=== PATIENT | male | born 1955 | race Caucasian/White ===

== ENCOUNTER 2017-01-07 00:08 | Emergency (ER) | payer BC ==
[2017-01-07] MEDS ORDERED: MORPHINE SULFATE 10 MG/ML SOL IV ONE (00:24)
[2017-01-07 00:27] VITALS: TEMP 100.4
[2017-01-07 00:27] LABS: BASOPHILS % (AUTO) 1 % (0-3); EOSINOPHILS % (AUTO) 4 % (0-9); HEMATOCRIT 36 % (39-53); MEAN CORPUSCULAR HGB CONC 35.9 gm/dl (32.0-36.0); MEAN CORPUSCULAR VOLUME 87 fL (80-100); MONOCYTES % (AUTO) 9.8 % (0-12); NEUTROPHILS % (AUTO) 64.5 % (37-80)
[2017-01-07] MEDS ORDERED: MORPHINE SULFATE 10 MG/ML SOL ONE (00:29)
[2017-01-07] MEDS: SODIUM CHLORIDE 0.9% FLUSH 10 ML SOL IV PRN ×2 (00:35→01:57)
[2017-01-07 00:39] LABS: ALBUMIN 3.4 gm/dl (3.4-5.0); CALCIUM 8.5 mg/dl (8.5-10.1); POTASSIUM 3.9 mMol/L (3.5-5.1)
[2017-01-07] MEDS ORDERED: HYDROMORPHONE HCL 2 MG/ML 1 ML SOL IV ONE (01:51)
[2017-01-07] MEDS ORDERED: HYDROMORPHONE HCL 2 MG/ML 1 ML SOL ONE (01:52)
[2017-01-07 02:13] VITALS: BP 153/87; PULSE 93; RESP 14; O2SAT 96
== END 2017-01-07 02:51 | disposition short-term general hospital (02) ==
LOC: ED 00:08
DX: R07.9 Chest pain, unspecified (principal)
CPT/HCPCS: 99285 ×3; 71010; 80053; 82150; 84484; 85025; 85610; 85730; 93005; J1170; J2270; 36415

== ENCOUNTER 2017-02-16 14:13 | Emergency (ER) | payer BC ==
[2017-02-16 14:20] VITALS: RESP 20
[2017-02-16 14:34] VITALS: BP 153/75; PULSE 67; TEMP 99.5; O2SAT 97
== END 2017-02-16 15:00 | disposition home or self-care (01) ==
LOC: ED 14:13
DX: S80.11XA Contusion of right lower leg, initial encounter (principal); W19.XXXA Unspecified fall, initial encounter; Z89.511 Acquired absence of right leg below knee
CPT/HCPCS: 73560; 99282; 99283; A6402; A6446